=== PATIENT | female | born 1950 | race Caucasian/White ===

== ENCOUNTER 2023-04-16 07:34 | Inpatient (IN) | payer MEDICARE ==
[2023-04-15 12:22] LABS: Basophils # (auto) 0.1 10 ^3/uL (0-0.2); Basophils % (auto) 0.9 % (0.0-2.0); Eosinophils # (auto) 0.2 10 ^3/uL (0-0.8); Eosinophils % (auto) 3.4 % (0.0-7.0); Hematocrit 39.7 % (36.0-46.0); Hemoglobin 13.2 g/dL (12.2-16.2); Lymphocytes # (auto) 1.8 10 ^3/uL (0.4-5.4); Lymphocytes % (auto) 26.6 % (10.0-50.0); Mean Corpuscular Hemoglobin 30.2 pg (28.0-32.0); Mean Corpuscular Hgb Conc. 33.3 g/dL (32.0-36.0); Mean Corpuscular Volume 90.7 fL (80.0-100.0); Monocytes # (auto) 0.5 10 ^3/uL (0-1.3); Monocytes % (auto) 7.5 % (0.0-12.0); Neutrophils # (auto) 4.1 10 ^3/uL (1.6-8.6); Neutrophils % (auto) 61.6 % (37.0-80.0); Nucleated Red Blood Cells % 0.1 %; Red Blood Cells 4.37 10^6/uL (4.0-5.20); Red Cell Distribution Width 13.2 % (11.8-14.3); Urine Bacteria NONE SEEN /hpf (None Seen); Urine Blood Negative /uL (Negative); Urine Specific Gravity 1.025 (1.001-1.035); Urine WBC 4 /hpf (0 - 5); White Blood Cell 6.7 10^3/uL (4.4-10.8)
[2023-04-15 12:33] LABS: INR 1.02 (0.9-1.15); Partial Thromboplastin Time 31.5 SEC (24.5-34.5)
[2023-04-15 12:52] LABS: Calcium 9.4 mg/dL (8.5-10.1); Potassium 4.4 mmol/L (3.5-5.1)
[2023-04-15 12:56] LABS: Bilirubin, Total 0.6 mg/dL (0.2-1.0)
[~2023-04-16] VITALS: Ht 170.2 cm; Wt 82.0 kg
[~2023-04-16 07:34] MED LIST: CYCL-839 PO; DexAMETHasone SOD PHOS 10MG/1ML VIAL INJ ONE; FAMOTIDINE (10MG/ML) 2ML VL IV ONE; GABA400C PO; GLYCOPYRROLATE 0.2 MG/ML 1ML VIAL ONE; KETAMINE HCL 10 ML ONE; KETOROLAC TROMETH 30 MG/ML 1ML VIAL ONE; LIDOCAINE 2% (LOCAL ANESTH.) PF 5ml SDV ONE; MIDAZOLAM HCL 2MG/2ML 2ml VIAL (1mg/ml) ONE; MINO100C4 PO; ONDANSETRON HCL 4 MG/2 ML VIAL ONE; OXYC325T14 PO; PHENYLEPHRINE HCL 10 MG/ML VL ONE; PROPOFOL 10 MG/ML 20 ML IV ONE; ROCURONIUM 10MG/ML 10ML VIAL IV ONE; SUCCINYLCHOLINE CHLORIDE 20 MG/ML 10ML VIAL IV ONE; SUGAMMADEX 200mg/2ml Vial (100MG/ML) IV ONE; ceFAZolin 1GM/50ML 100 ML IV ONE; ePHEDrine SULFATE 50 MG/ML AMP ONE; fentaNYL CITRATE 100 MCG/2 ML VL ONE
[2023-04-16] MEDS ORDERED: MORPHINE SULFATE INJ 2 MG/ml SYRG IV PRN ×2 (08:45)
[2023-04-16] MEDS ORDERED: ACETAMINOPHEN 325 MG TAB PO PRN (08:45)
[2023-04-16] MEDS ORDERED: D5W/SOD CHLO 0.9% 1,000 ML IV SCH (08:45)
[2023-04-16] MEDS ORDERED: HYDROcodone-ACET 10/325MG TAB PO PRN (08:45)
[2023-04-16] MEDS ORDERED: ONDANSETRON HCL 4 MG/2 ML VIAL IV PRN ×2 (08:45→11:30)
[2023-04-16] MEDS ORDERED: NITROGLYCERIN 0.4 MG SL TAB SL PRN (08:45)
[2023-04-16] MEDS ORDERED: PROPOFOL 10 MG/ML 20 ML IV ONE ×2 (08:47→10:16)
[2023-04-16] MEDS ORDERED: fentaNYL CITRATE 100 MCG/2 ML VL ONE (09:35)
[2023-04-16] MEDS: DOCUSATE SOD 100 MG CAP PO SCH ×2 (10:00→21:18)
[2023-04-16] MEDS ORDERED: NALOXONE HCL 1MG/ML 2ML SYRINGE ONE (10:40)
[2023-04-16] MEDS ORDERED: HYDROmorphone HCL 2 MG/ML VL/or syr IV PRN (11:30)
[2023-04-16] MEDS ORDERED: LABETALOL HCL 5 MG/ML 4ML SYRINGE IV PRN (11:30)
[2023-04-16] MEDS ORDERED: FAMOTIDINE (10MG/ML) 2ML VL IV PRN (11:30)
[2023-04-16 13:36] VITALS: BP 174/76
[2023-04-16] MEDS: ceFAZolin 1GM/50ML 50 ML IV SCH ×2 (14:01→21:13)
[2023-04-16] MEDS: CYCLOBENZAPRINE HCL 10 MG TAB PO SCH ×2 (14:02→21:14)
[2023-04-16] MEDS ORDERED: GABAPENTIN 400 MG CAP PO ONE (14:15)
[2023-04-16] MEDS: D5W/SOD CHLO 0.9% 1,000 ML IV SCH (14:39)
[2023-04-16] MEDS: hydrALAZINE HCL 20 MG/ML VL IV PRN (14:49)
[2023-04-16] MEDS: GABAPENTIN 400 MG CAP PO SCH ×2 (18:00→21:15)
[2023-04-16 22:00] VITALS: BP 132/72
[2023-04-17 05:00] VITALS: BP 140/75
[2023-04-17 06:01] LABS: Potassium 3.6 mmol/L (3.5-5.1)
[2023-04-17 06:07] LABS: Basophils # (auto) 0 10 ^3/uL (0-0.2); Basophils % (auto) 0.4 % (0.0-2.0); Calcium 8.8 mg/dL (8.5-10.1); Eosinophils # (auto) 0 10 ^3/uL (0-0.8); Eosinophils % (auto) 0.2 % (0.0-7.0); Hematocrit 33.6 % (36.0-46.0); Hemoglobin 11.4 g/dL (12.2-16.2); Lymphocytes # (auto) 1.8 10 ^3/uL (0.4-5.4); Lymphocytes % (auto) 16.4 % (10.0-50.0); Mean Corpuscular Hemoglobin 30.5 pg (28.0-32.0); Mean Corpuscular Hgb Conc. 33.8 g/dL (32.0-36.0); Mean Corpuscular Volume 90.4 fL (80.0-100.0); Monocytes # (auto) 0.9 10 ^3/uL (0-1.3); Monocytes % (auto) 8.8 % (0.0-12.0); Neutrophils % (auto) 74.2 % (37.0-80.0); Nucleated Red Blood Cells % 0.1 %; Red Blood Cells 3.72 10^6/uL (4.0-5.20); Red Cell Distribution Width 13.4 % (11.8-14.3); White Blood Cell 10.8 10^3/uL (4.4-10.8)
[2023-04-17] MEDS: CYCLOBENZAPRINE HCL 10 MG TAB PO SCH ×3 (06:11→23:13)
[2023-04-17] MEDS: GABAPENTIN 400 MG CAP PO SCH ×4 (06:11→23:13)
[2023-04-17] MEDS: D5W/SOD CHLO 0.9% 1,000 ML IV SCH ×2 (06:13→23:35)
[2023-04-17 08:00] VITALS: BP 158/84
[2023-04-17 08:56] VITALS: BP 158/84
[2023-04-17] MEDS: DOCUSATE SOD 100 MG CAP PO SCH ×2 (10:00→21:04)
[2023-04-17 12:53] VITALS: BP 143/70
[2023-04-17 17:00] VITALS: BP 153/78
[2023-04-17 22:00] VITALS: BP 166/82
[2023-04-17] MEDS: hydrALAZINE HCL 20 MG/ML VL IV PRN (22:06)
[2023-04-18 05:00] VITALS: BP 155/88
[2023-04-18] MEDS: CYCLOBENZAPRINE HCL 10 MG TAB PO SCH ×2 (05:57→14:00)
[2023-04-18] MEDS: GABAPENTIN 400 MG CAP PO SCH ×2 (05:57→12:14)
[2023-04-18] MEDS: hydrALAZINE HCL 20 MG/ML VL IV PRN (06:06)
[2023-04-18 06:28] VITALS: BP 139/80
[2023-04-18 08:00] VITALS: BP 145/77
[2023-04-18] MEDS ORDERED: CYCLOBENZAPRINE HCL 10 MG TAB PO PRN (08:45)
[2023-04-18 09:24] VITALS: BP 145/77
[2023-04-18] MEDS ORDERED: MINOCYCLINE HCL 100 MG CAP PO SCH (10:00)
[2023-04-18] MEDS ORDERED: GABAPENTIN 400 MG CAP PO SCH (12:00)
[2023-04-18] MEDS: DOCUSATE SOD 100 MG CAP PO SCH (12:14)
[2023-04-18 13:00] VITALS: BP 142/83
[2023-04-18] MEDS ORDERED: DexAMETHasone SOD PHOS 10MG/1ML VIAL INJ IV ONE (13:00)
[2023-04-18 13:50] VITALS: BP 167/90
== END 2023-04-18 13:46 | disposition home health service (06) | DRG 472 ==
LOC: SUR 07:34 → TELE 08:43 → TELE-CENTR 13:30
PROVIDERS: ADMIT Nurse Practitioner Acute Care; ATTEND Nurse Practitioner Acute Care
PROC: 0RG20A0 Fusion of 2 or more Cervical Vertebral Joints with Interbody Fusion Device, Anterior Approach, Anterior Column, Open Approach (ICD-10-PCS; 2023-04-16)
PROC: 01N10ZZ Release Cervical Nerve, Open Approach (ICD-10-PCS; 2023-04-16)
PROC: 4A11X4G Monitoring of Peripheral Nervous Electrical Activity, Intraoperative, External Approach (ICD-10-PCS; 2023-04-16)
PROC: 0RB30ZZ Excision of Cervical Vertebral Disc, Open Approach (ICD-10-PCS; principal; 2023-04-16 07:45)
DX: M48.02 Spinal stenosis, cervical region (principal); G37.3 Acute transverse myelitis in demyelinating disease of central nervous system; G99.2 Myelopathy in diseases classified elsewhere; M54.12 Radiculopathy, cervical region
CPT/HCPCS: 36415; 72040; 76000; 80048; 80053; 81001; 85025; 85610; 85730; 86850; 86900; 86901; 97110; 97163; G0378; J0330; J0690; J1100; J1885; J2001; J2250; J2405; J2704; J3490; J7042